=== PATIENT | male | born 1975 | race Caucasian/White ===

== ENCOUNTER 2023-11-24 23:47 | Emergency (ER) | payer OTHER ==
[~2023-11-24] VITALS: Ht 162.6 cm; Wt 65.0 kg
[2023-11-24 23:59] VITALS: O2SAT 96
[2023-11-25] MEDS ORDERED: METH-653 MT (00:23)
[2023-11-25] MEDS: TRAMADOL 50MG TABLET PO ONE (00:34)
[2023-11-25 00:35] VITALS: BP 148/80; PULSE 94; RESP 15; TEMP 98.5
[2023-11-25] MEDS: TRAMADOL 50MG TABLET PO NR (00:35)
== END 2023-11-25 00:37 | disposition home or self-care (01) ==
LOC: ER 23:47
DX: G89.29 Other chronic pain (principal); M54.50 Low back pain, unspecified; E11.9 Type 2 diabetes mellitus without complications; E78.00 Pure hypercholesterolemia, unspecified; I10 Essential (primary) hypertension
CPT/HCPCS: 99283